=== PATIENT | female | born 2000 | race Caucasian/White ===

== ENCOUNTER 2023-12-29 09:30 | Observation (INO) | payer OTHER, SELFPAY ==
[2023-12-29 09:50] VITALS: BP 147/77; PULSE 100
[2023-12-29 10:07] VITALS: BP 105/58; PULSE 74
[2023-12-29 10:13] VITALS: PULSE 70
[2023-12-29 10:19] VITALS: PULSE 136
[2023-12-29 10:21] LABS: Amnisure NEGATIVE (NEGATIVE); Internal Control Within Normal Limits
[2023-12-29 10:21] LABS: Bilirubin Urine NEGATIVE (NEGATIVE); Blood Urine NEGATIVE (NEGATIVE); Clarity Urine CLEAR (CLEAR); Color Urine LT. YELLOW (YELLOW); Glucose Urine UA NEGATIVE (NEGATIVE); Ketones Urine NEGATIVE (NEGATIVE); Leukocyte Esterase Urine NEGATIVE (NEGATIVE); Nitrite Urine NEGATIVE (NEGATIVE); Protein Urine NEGATIVE (NEG/TRACE); Specific Gravity Urine <=1.005 (1.005-1.025); Urine Microscopic Indicated NO; Urobilinogen Urine 0.2 EU/dL (0.2-1.0); pH Urine 6.5 (5.0-9.0)
[2023-12-29 11:05] VITALS: PULSE 85
--- NOTE | 2023-12-29 11:20 | PC.NURSE ---
0955 Patient laid back for amnisure collection and SVE. patient moderately uncomfortable with amnisure swab, tolerates SVE fairly well. Patient closed, no fluid noted on exam glove and by inspection. 58 patient repositioned to high fowlers from supine position. Patient reports dizziness, light headed feeling, reaches out for RN assistance. Patient's head laid back, cold rag to forehead, RN remains at bedside. 59 Patient repeatedly states, I'm going to pass out, my heart is pounding, I'm going to pass out. patient pale, diaphoretic, unable to keep eyes open. encouraged deep breathing. Patient continues stating, I'm scared, I'm going to pass out. Patient laid back to semi-fowlers. Carotid and radial pulse bounding to palpation. 1000 SpO2 monitor and BP cuff on, HR and spO2 stable, unable to obtain blood pressure. FHT decelerates from baseline 135bpm slowly down to 80-90bpm, assistance called to bedside. Deceleration sustained for 4 minutes. Patient repositioned on left side, continues stating I'm going to pass out. Oxygen applied for patient comfort at 10L/min non rebreather. Patient states her heart feels like it's pounding. FHT slowly recover to 145bpm. 1005 Sunday SANCHEZ notified of patient status and FHR tracing. 500ml bolus lactated ringers ordered 1007 20G IV started in right AC without difficulty, flushes easily without discomfort. LR started at 999ml/hr for 500ml bolus 1008 Patient reports feeling sleepy, I always feel like this after an episode. RN x2 remain at bedside. Cool rag to forehead, ice chips given, patient reports she continues to feel dizzy but not as bad. patient states this epidsode is probably the worst she's had, but happens frequently at home or work, has been going on since a teenager but definitely worse since her 3rd trimester. O2 discontinued. 1015 Patient remains resting on left side, semi-fowlers.IV infusing without difficulty. Patient denies discomfort. Patient states she is supposed to see a gum remover today for these episodes, states physicians typically brush epidsodes off as anxiety. 1019 Patient calls out and requests assistance, states That feeling is coming back again. Tachycardia noted 130-140bpm, radial pulse fluttery but regular. deep breathing encouraged, RN remains at bedside. 1020 Patient reports discomfort with IV infusion, upper arm cool and firm to touch. IV stopped, discontinued with tip intact. 2 additional attempts to start IV without success 20 and 22G, vein accessed and flash noted and IV advances without difficulty, but infiltrates with flush. IV remains discontinued at this time. 1036 Amnisure results negative. Patient states she is feeling much better, continues with oral hydration. Denies dizziness or lightheadedness, pulse feels as if it's regulating. 1041 Sunday Paged 1050 Report given to Sunday SANCHEZ, discussed patient arrival, lab results reviewed, FHR tracing reviewed. Discharge orders received at this time, if patient is feeling well, so that she may attend her cardiology appointment today. 1100 Plan of care discussed with patient, her , and her mother. Discharge education reviewed, patient sits up slowly with staff assist, denies dizziness or lightheadedness. Patient sits at side of bed momentarily before getting dressed 1110 Patient discharged via wheelchair per this RN and family.
== END 2023-12-29 11:15 | disposition home or self-care (01) ==
PROVIDERS: Admitting Provider Midwife; PCP Nurse Practitioner; Visit Provider Midwife
DX: Z03.71 Encounter for suspected problem with amniotic cavity and membrane ruled out (principal); O26.893 Other specified pregnancy related conditions, third trimester; R55 Syncope and collapse; Z3A.36 36 weeks gestation of pregnancy
CPT/HCPCS: 81003; 84112; G0378; G0379

== ENCOUNTER 2024-01-17 17:58 | Inpatient (IN) | payer OTHER, SELFPAY ==
[2024-01-17] VITALS (14 sets, daily range): BP systolic 110–138; BP diastolic 66–86; PULSE 67–110; TEMP 36.7
--- OUTSIDE RECORDS SUMMARY | 2024-01-17 18:05 | XMS_ITS | CCD ---
Author Organization [facility] Care Team Providers Care Geothermal Sheet Metal Worker Name Role Phone RASHI TELLEZ Attending Unavailable AICHHOLZ, HAIRSPRING ASSEMBLER FAIZA Consulting Unavailable AICHHOLZ, HAIRSPRING ASSEMBLER FAIZA Primary Care Unavailable AICHHOLZ, HAIRSPRING ASSEMBLER FAIZA Admitting Unavailable Koki Worthington Unavailable Soumya Wetzel Unavailable LASHON ALBA Referring Unavailable FAIZA TELLEZ Primary Care Unavailable MAYANK, BRIDGETT Attending Unavailable FLORO, LSAHON Referring Unavailable MAYANK, BRIDGETT Referring Unavailable FLORO, LASHON L Attending Unavailable FLORO, LASHON L Referring Unavailable FLORO, LASHON L Attending Unavailable FLORO, LASHON L Attending Unavailable FLORO, LASHON L Attending Unavailable FLORO, LASHON L Referring Unavailable FLORO, LASHON L Attending Unavailable FLORO, LASHON L Referring Unavailable AICHHOLShawn FAIZA Attending Unavailable FLORO, LASHON L Attending Unavailable FLORO, LASHON L Attending Unavailable FLORO, LASHON L Attending Unavailable FLORO, LASHON L Attending Unavailable FLORO, LASHON L Attending Unavailable FLORO, LASHON L Referring Unavailable Medications Current Medications Medication Drug Class(es) Dates Sig (Normalized) Sig (Original) [id number] 200 actuat albuterol 0.09 mg/actuat metered dose inhaler (2 sources) beta2-Adrenergic Agonist Start: 10-16-2022 take 2 puff(s) by inhalation every four hours as needed Albuterol Sulfate HFA 108 (90 Base) MCG/ACT 2 puffs as needed Inhalation every 4 hrs Sep, Active Start: 10-16-2022 take 2 puff(s) by in halation every four hours as needed Albuterol Sulfate HFA 108 (90 Base) MCG/ACT 2 puffs as needed Inhalation every 4 hrs Sep, Not-Taking amoxicillin 875 mg / clavulanate 125 mg oral tablet (4 sources) Penicillin-class Antibacterial Start: 11-09-2023 take 1 tablet by mouth twice daily Amoxicillin-Pot Clavulanate Active 1 TAB PO Twice daily November 09, 2023 12:00am Start: 10-16-2022 take 1 tablet by wallace th every twelve hours Amoxicillin-Pot Clavulanate 875-125 MG 1 tablet Orally every 12 hrs for 10 day(s) Mar, Active escitalopram 10 mg oral tablet (2 sources) Serotonin Reuptake Inhibitor take 1 tablet by mouth every twenty-four hours Lexapro 10 MG 1 tablet Orally Once a day Active predniSONE 20 mg oral tablet (1 source) Start: take 1 tablet by mouth every twelve hours prednisone 20 MG 1 tablet Orally BID for 5 Mar, Active Completed/Discontinued Medications Medication Drug Class(es) Dates Sig (Normalized) Sig (Original) benzonatate 100 mg oral capsule (2 sources) Non-narcotic Antitussive Start: 10-16-2022 take 1 capsule by mouth every eight hours Benzonatate 100 MG 1 capsule as needed Orally Three times a day for 10 days Sep, Not-Taking Problems Active Problems Problem Classification Problem Date Documented Da te Episodic/Chronic Cardiac dysrhythmias (1 source) Tachycardia, unspecified; Translations: [Tachycardia, unspecified] Onset: 12-29-2023 Episodic Other upper respiratory infections (2 sources) Acute maxillary sinusitis, unspecified Episodic Prolapse of female genital organs (2 sources) Other female genital prolapse; Translations: [Other female genital prolapse] Onset: 10-26-2023 Chronic Syncope (1 source) Syncope and collapse; Translations: [Syncope and collapse] Onset: 12-29-2023 Episodic Unclassified (3 sources) CONTACT W/AND (SUSP) EXPOS COVID-19; Translations: [CONTACT W/AND (SUSP) EXPOS COVID-19] Onset: 07-29-2021 Unclassified (1 source) New Patient Onset: 12-29-2023 Past or Other Problems Problem Classification Problem Date Documented Da te Episodic/Chronic Unclassified (1 source) CONTACT W/AND (SUSP) EXPOS COVID-19; Translations: [CONTACT W/AND (SUSP) EXPOS COVID-19] Onset: 07-23-2021 Unclassified (1 source) Cough R05.9 Unclassified (1 source) Suspected COVID-19 virus infection Z20.822 Results Test Name Value Interpretation Reference Range Facility US OB FOLLOW UP TRANSABDOMIN AL APPROACHon 01-11-2024 US OB FOLLOW UP TRANSABDOMINAL APPROACH FINDINGS: A single, live intrauterine is present with normal cardiac rate of 141 beats per minute. Normal activity and amniotic fluid volume. Amniotic fluid index is 18.0 cm. Morphology is grossly normal. The cervix is obscured from positioning. The placenta is fundal, Grade 1 not associated with the cervical os. The current sonographic age is38 weeks and 2 days, based on the following measurements: BPD 9.4 cm (38 weeks, 2 days) Head Circumference 33.5cm ( 38 weeks,2 days) Abdominal Circumference 34.4cm ( 38 weeks, 2 days) Femur Length 7.5cm (38 weeks, 2 days) Presentation Cephalic Placenta Fundal Grade 1 Weight (g) by Percentile 63.3% * These measurements result in an estimated date of delivery of January 23, 2024 The current estimated weight is 3443 grams ( 7 pound, 9 ounces). IMPRESSION: Single, live intrauterine , current sonographic age of 38 weeks and 2 days, with an estimated date of delivery of * Estimated Weight (g) by Percentile is based upon an accurate estimated age based on last menstrual period. TRANSCRIBED BY: ELECTRONICALLY SIGNED BY: Lui Yu MD Normal Not Available US OB FOLLOW UP TRANSABDOMIN AL APPROACHon 11-16-2023 OB FOLLOW UP TRANSABDOMINAL APPROACH FINDINGS: A single, live intrauterine is present with normal cardiac rate of 141 beats per minute. Normal activity and amniotic fluid volume. Amniotic fluid index is 16.0 cm. Morphology is grossly normal. The cervix obscured from positioning. The placenta is fundal, Grade 1 not associated with the cervical os. The current sonographic age is 30 weeks and 2 days, based on the following measurements: BPD 7.6 cm (30 weeks, 2 days) Head Circumference 27.7cm (30 weeks, 2 days) Abdominal Circumference 25.8 cm (30 weeks, 0 days) Femur Length 5.8 cm ( 30 weeks, days) Presentation Cephalic Placenta Fundal Grade 1 These measurements result in an estimated date of delivery of January 23, 2024 The current estimated weight is 1514 grams +/- grams ( 3 pound, 5 ounces). Weigh by percentile 32.3% IMPRESSION: Single, live intrauterine , current sonographic age of 30 weeks and 2 days, with an estimated date of delivery of January 23, 2024. Prior examination August 29, 2023 delivery at that time was January 27, 2024. TRANSCRIBED BY: ELECTRONICALLY SIGNED BY: Lui Yu MD Normal Not Available US OB 14+ WEEKS ANATOMY SCAN on 08-29-2023 US OB 14+ WEEKS ANATOMY SCAN FINDINGS: Comparison made with prior examination of June 22, 2023. A single, live intrauterine is present with normal cardiac rate of 143 beats per minute. Normal activity and amniotic fluid volume. Amniotic fluid index is 11.0 cm. Morphology is grossly normal. Bilateral 2-3 mm choroid plexus cysts.The cervix is long and closed, 4.6cm. The placenta is posterior, not associated with the cervical os. The current sonographic age is 18 weeks and 4 days, based on the following measurements: BPD 4.3cm ( 19weeks, 0 days) Head Circumference 15.8 cm ( 18weeks,5 days) Abdominal Circumference 12.6 cm (18 weeks, 1 days) Femur Length 2.7 cm (18 weeks, 1 days) Presentation Cepahlic Placenta Posterior These measurements result in an estimated date of delivery of January 26, 2024. The current estimated weight is 230 grams +/- grams ( pound, 8 ounces). 11.9% IMPRESSION: Single, live intrauterine , current sonographic age of 18 weeks and 4 days, with an estimated date of delivery of January 26, 2024. Date of delivery is consistent with prior examination of June 22, 2023. TRANSCRIBED BY: ELECTRONICALLY SIGNED BY: Lui Yu MD Normal Not Available US OB < 14 WEEKS EARLYon US OB < 14 WEEKS EARLY FINDINGS: Uterus measures 9.5 x 7.8 x 6.4 cm. A well-defined decidual reaction surrounds a well-defined gestational sac. Within the gestational sac is both a yolk sac, and a single live intrauterine , with heart rate 158 bpm. [place]-rump length measures 2.10 cm, yielding an estimated sonographic gestational age of 8 weeks, 5 days. This compares with gestational age by dates of 9 weeks, 2 days. Sonographic estimated date of delivery January 27, 2024. Right ovary measures 3.5 x 2.2 x 2.3 cm. Left ovary measures 2.6 x 2.7 x 1.6 cm. Both ovaries normal in size, shape, echogenicity and color flow. No free fluid. No adnexal masses. IMPRESSION: Impression: Single live intrauterine with estimated sonographic gestational age 8 weeks, 5 days. ELECTRONICALLY SIGNED BY: Kp Donnelly MD Normal Not Available COVID + FLU Quick Testingon 04-19-2023 SARS-CoV-2 (COVID-19) RNA KINGSLEY+probe Ql (Unsp spec) Negative [facility] Other COVID + FLU Quick Testing Negative [facility] [employer] Other COVID/FLU/RSV RT-PCRon 10-16 SARS-CoV-2 (COVID-19) RNA KINGSLEY+probe Ql (Unsp spec) Negative [place] Other COVID/FLU/RSV RT-PCR Negative [facility] [employer] Other Covid-19 PCR ([facility]on 06-26 SARS-CoV-2 (COVID-19) RNA KINGSLEY+probe Ql (Unsp spec) Not detected Normal NOT DETECTED [facility] Comment on above: Result Comment: This test is not yet approved or cleared by the [place] FDA. When there are no FDA-approved or cleared tests available, and other criteria are met, FDA can make tests available under an emergency access mechanism called an Emergency Use Authorization (EUA). The EUA for this test is supported by the [place] of Health and Human Service's (HHS's) declaration that circumstances exist to justify the emergency use of in vitro diagnostics for the detection and/or diagnosis of the virus that causes COVID-19. This EUA will remain in effect (meaning this test can be used) for the duration of the COVID-19 declaration justifying emergency of IVDs, unless it is terminated or revoked by FDA (after which the test may no longer be used). When diagnostic testing is negative, the possibility of a false negative should be considered in the context of a patient's recent exposures and the presence of clinical signs and symptoms consistent with SARS-CoV-2. Performed By: #### C [facility] #### [facility] [address] [place] [address] Dr. Rafa Randall Vital Signs Date Time Vital Sign Value Performing Clinician Facility 11-09-2023 09:12-0400 Body height 154.94 cm [facility] 11-09-2023 09:12-0400 Body mass index (BMI) [Ratio] 23.5 kg/m2 [facility] 11-09-2023 09:12-0400 Body temperature 96.5 [degF] [facility] 11-09-2023 09:12-0400 Body weight 56.41 kg [facility] 11-09-2023 09:12-0400 Diastolic blood pressure 84 mm[Hg] [facility] 11-09-2023 09:12-0400 Heart rate 79 /min [facility] 11-09-2023 09:12-0400 Respiratory rate 16 /min [facility] 11-09-2023 09:12-0400 SaO2% (BldA) [Mass fraction] 99 % [facility] 11-09-2023 09:12-0400 Systolic blood pressure 120 mm[Hg] [facility] 04-19-2023 18:00-0400 Body height 154.94 cm Soumya [employer] Other [employer] [facility] [employer] Other 04-19-2023 18:00-0400 Body mass index (BMI) [Ratio] 20.74 kg/m2 Soumya [employer] Other [employer] Other 04-19-2023 18:00-0400 Body temperature 100 [degF] Soumya Wetzel Other [employer] Other 04-19-2023 18:00-0400 Body weight 49.81 kg Soumya [employer] Other [employer] Other 04-19-2023 18:00-0400 Respiratory rate 18 /min Soumya Wetzel Other [employer] Other 04-19-2023 18:00-0400 SaO2% (BldA) [Mass fraction] 99 % Soumya Wetzel Other [employer] Other 10-16-2022 10:30-0400 Body height 154.94 cm Koki Worthington Other [employer] Other 10-16-2022 10:30-0400 Body mass index (BMI) [Ratio] 20.63 kg/m2 Koki Worthington Other [employer] Other 10-16-2022 10:30-0400 Body temperature 100.4 [degF] Koki Worthington Other [employer] Other 10-16-2022 10:30-0400 Body weight 49.53 kg Koki Worthington Other [employer] Other 10-16-2022 10:30-0400 Diastolic blood pressure 69 mm[Hg] Koki Worthington Other [employer] Other 10-16-2022 10:30-0400 Respiratory rate 16 /min Koki Worthington Other [employer] Other 10-16-2022 10:30-0400 SaO2% (BldA) [Mass fraction] 99 % Koki Worthington Other [employer] Other 10-16-2022 10:30-0400 Systolic blood pressure 103 mm[Hg] Koki Worthington Other [employer] Other Encounters Encounter Date Encounter Type Care Provider Facility Start: 01-11-2024 End: 01-11-2024 ambulatory LASHON L FLORO Not Available Start: 01-05-2024 End: 01-05-2024 ambulatory LASHON L FLORO Not Available Start: 12-29-2023 ambulatory [facility] Start: 12-29-2023 End: 12-29-[address] [facility] Start: 12-28-2023 End: 12-28-2023 ambulatory LASHON L FLORO Not Available Start: 12-14-2023 End: 12-14-2023 ambulatory LASHON L FLORO Not Available Start: 11-30-2023 End: 11-30-2023 ambulatory LASHON L FLORO Not Available Start: 11-28-2023 End: 11-28-2023 ambulatory FAIZA ARANZAHHOLZ Not Available Start: 11-16-2023 End: 11-16-2023 ambulatory LASHON L FLORO Not Available Start: 11-09-2023 End: 11-09-2023 ambulatory [facility] Work Phone: Start: 11-09-2023 End: 11-09-2023 Patient encounter procedure [facility] Work Phone: Start: 10-26-2023 End: 10-27-2023 ambulatory LASHON FLORO [facility] Start: 10-19-2023 End: 10-19-2023 ambulatory LASHON L FLORO Not Available Start: 09-15-2023 End: 09-15-2023 ambulatory LASHON L FLORO Not Available Start: 08-29-2023 End: 08-29-2023 ambulatory LASHON L FLORO Not Available Start: 07-27-2023 End: 07-27-2023 ambulatory LASHON L FLORO Not Available Start: 06-22-2023 End: 06-22-2023 ambulatory LASHON L FLORO Not Available Start: 04-19-2023 End: 04-19-2023 ambulatory Soumya Wetzel Other [employer] Other Start: 04-19-2023 Office outpatient visit 25 minutes Soumya Wetzel [facility] Start: 10-16-2022 End: 10-16-2022 ambulatory Reyvince Ander Other [employer] Other Start: 10-16-2022 Office outpatient visit 15 minutes Koki Worthington [facility] Start: 07-23-2021 End: 07-23-2021 ambulatory RASHI TELLEZ Facility: Plan of Treatment Date Care Activity Detail Author [facility] Payers Date Payer Category Payer Unknown [id number] 2.16.84 [id number] 1998 Unknown [id number] 2.16.8 [id number] 1998 Unknown [id number] 2.16.8 [id number] 1998 Unknown [id number] 2.16.8 40.1.295779.3.579.2.1286 1998 Unknown [id number] 2.16.84 0.1.311560.3.579.2.1259 1998 Unknown [id number] 2.16.84 0.1.794327.3.579.2.1259 1998 Unknown [id number] 2.16.84 0.1.877106.3.579.2.1259 1998 Unknown [id number] 2.16.84 0.1.227505.3.579.2.1259 1998 Unknown [id number] 2.16.84 0.1.767209.3.579.2.1259 1998 Unknown [id number] 2.16.84 0.1.773178.3.579.2.1259 1998 Unknown [id number] 2.16.84 0.1.295332.3.579.2.1259 1998 Unknown [id number] 2.16.84 0.1.454983.3.579.2.9 1998 Unknown [id number] 2.16.84 0.1.557735.3.579.2.1259 1998 Unknown [id number] 2.16.84 0.1.378546.3.579.2.9 1998 Unknown [id number] 2.16.84 0.1.451982.3.579.2.1259 1998 Unknown [id number] 2.16.84 0.1.175319.3.579.2.9 1998 Unknown [id number] 2.16.840 .1.031047.3.579.2.9 1998 Unknown [id number] 2.16.840 .1.756315.3.579.2.9 1998 Unknown [id number] 2.16.840 .1.327940.3.579.2.1259 1959 Unknown [id number] Social History Date Type Detail Facility Unknown if ever smoked [employer] Other Sex Assigned At Sex Assigned At Bir th [employer] Other Start: 11-09-2023 Tobacco smoking status NHIS Never smoked tobacco (finding) [facility] Start: 2000 Sex Assigned At Female [facility] Evaluation note 04-19-2023 Note Date & Type Note Facility 04-19-2023 Evaluation note Encounter Date Diagnosis Assessment Notes Mar, Acute non-recurrent maxillary sinusitis (ICD-10 - J01.00) Advise patient that rapid COVID/influenz a A/B test was negative today in office. Discussed diagnosis with patient. Will today for bacterial sinusitis based on physical exam and duration of symptoms. Take antibiotic and steroid as prescribed, complete entire course of therapy even if symptoms resolve. Reviewed allergies and recent antibiotic use with patient. Supportive care as directed, push fluids and rest, Tylenol as directed for discomfort/fev er, warm moist compress over sinuses several times a day, cool mist humidification , nasal saline spray as directed. Symptoms should improve in the next 3 days, if symptoms persist follow up with PCP. Immediate eval for warning s/sx as discussed. Patient verbalizes understanding and is agreeable to treatment plan Mar, Suspected COVID-19 virus infection (ICD-10 - Z20.822) [employer] Other Evaluation note 10-16-2022 Note Date & Type Note Facility 10-16-2022 Evaluation note Encounter Date Diagnosis Assessment Notes Sep, Cough (ICD-10 - R05.9) covid, flu and rsv all neg, see above. Sep, Acute non-recurrent maxillary sinusitis (ICD-10 - J01.00) Pt is to take abx as prescribed with food. Push fluids and rest. Pt denied work note today. Pt is to take otc antipyretic prn for fever and aches. Pt is to take rx inhaler and cough suppressant prn for cough and chest tightness. Pt is to be re-evaluated after tx if sx worsen or don't improve by pcp or UC. Pt is to call the office with any questions or concerns regarding dx and tx. Pt understood and agreed to tx plan. [employer] Other Evaluation note Note Date & Type Note Facility Evaluation note No assessment information availa [facility] Work Phone: History general Narrative - Reported Note Date & Type Note Facility History general Narrative - Reported Type Medical History anxiety [facility] [employer] Other Summary Purpose Family History No Family History Records FoundNo Family History Records FoundNo Family History Records FoundNo Family History Records Found Advance Directives No Advanced Directives Records Found Advance Directive Response Recorded Date/ Time Advance Directives No November 08, 024 9:07am Chief Complaint and Reason for Visit Chief Complaint Cough, Congestion, s ore throat Additional Source Comments INFORMATION SOURCE (unrecogn ized section and content) DATE CREATED AUTHOR 07/30/2021 [facility] DATE CREATED AUTHOR AUTHOR'S ORGANIZ ATION 10/27/2023 [facility] DATE CREATED AUTHOR AUTHOR'S ORGANIZ ATION 12/31/2023 [facility] DATE CREATED AUTHOR AUTHOR'S ORGANANAM ATION 01/15/2024 [facility] EPIC REASON FOR VISIT (unrecogniz ed section and content) h/a, congestion, coughSINUS INFECTION? Care Teams (unrecognized sec tion and content) Team Status: Active Member Role Status Dates Faiza Tellez Primary Care Provider Active Team Status: Inactive Member Role Status Dates Faiza Tellez Primary Care Provider Active Sta rt: November 09, 2023 End: November 09, 2023 TONI Barakat Attending Provider Active S tart: November 09, 2023 End: November 09, 2023 Goals (unrecognized section and content) Goals may be documented in a n alternate section FOR RECORDS PERTAINING TO PATIENTS WHO ARE OR HAVE BEEN ENROLLED IN A CHEMICAL DEPENDENCY/SUBSTANCEABUSE PROGRAM, SOME INFORMATION MAY BE OMITTED. This clinical summary was aggregated from multiple sources. Caution should be exercised in using it in the provision of clinical care. This summary normalizes information from multiple sources, and as a consequence, information in this document may materially change the coding, format and clinical context of patient data. In addition, data may be omitted in some cases. CLINICAL DECISIONS SHOULD BE BASED ON THE PRIMARY CLINICAL RECORDS. [facility] [employer] provides no warranty or guarantee of the accuracy or completeness of information in this document.
[2024-01-17 19:00] LABS: Red Blood Count 4.17 10^6/uL (4.20-5.40); White Blood Count 11.5 10^3/uL (4.0-11.0)
[2024-01-17 19:01] LABS: Hematocrit 35.5 % (36.0-48.0); Hemoglobin 11.9 g/dL (12.0-16.0); Mean Corpuscular HGB Conc 33.5 g/dL (29.9-35.2); Mean Corpuscular Hemoglobin 28.5 pg (26.7-34.0); Mean Corpuscular Volume 85.1 fL (81.0-99.0); Mean Platelet Volume 10.9 fL (9.5-13.5); Platelet Count 334 10^3/uL (150-450); Red Cell Distribution Width 12.4 % (11.0-15.0)
[2024-01-17 19:10] LABS: Amphetamine Screen Urine NEGATIVE (NEGATIVE); Barbiturates Screen Urine NEGATIVE (NEGATIVE); Benzodiazepines Screen Urine NEGATIVE (NEGATIVE); Buprenorphine Screen Urine NEGATIVE (NEGATIVE); Cannabinoid Screen Urine NEGATIVE (NEGATIVE); Cocaine Screen Urine NEGATIVE (NEGATIVE); Methadone Screen Urine NEGATIVE (NEGATIVE); Methamphetamines Screen Urine NEGATIVE (NEGATIVE); Opiate Screen Urine NEGATIVE (NEGATIVE); Oxycodone Screen Urine NEGATIVE (NEGATIVE); Phencyclidine Screen Urine NEGATIVE (NEGATIVE); Tricyclic Antidepressant Urine NEGATIVE (NEGATIVE)
[2024-01-17] MEDS: DINOPROSTONE 10 MG VAG INSERT.ER VAGINAL (19:45)
--- NOTE | 2024-01-17 20:45 | PM.OBHP ---
OB - H&P: HPI History of Present Illness Chief complaint: INDUCTION : 1 Para: 0 Gestational age based on last menstrual period: 39.1 Comments: patient desires elective induction history of panic and anxiety attacks vaso vagal disorder per cardiology History of Present Dating criteria: LMP confirmed by 1st trimester US care: good care Ultrasounds: normal 1st trimester US complications: other (anxiety ) Medical complications OB: cardiovascular Narrative: vaso vagal disorder , elevated pulse rate when vagal occurs Labs Blood type: A (+) positive Rubella: immune RPR/VDLR: nonreactive GBS status: negative HBsAG: negative Review of Systems ROS Psychiatric: Reports: anxiety and other (history of anxiety and on medications but she does not take any medications) Meds Home Medications and Allergies Allergies Allergy/AdvReac Type Severity Reaction Status Date / Time No Known Drug Allergies Allergy Verified 01/17/24 18:22 Exam Constitutional Vital Signs, click to edit/add: Last Vital Signs Temp 98.1 F 01/17/24 18:45 Pulse 79 01/17/24 20:38 Resp 16 01/17/24 18:45 BP 123/74 01/17/24 20:38 O2 Del Method Room Air 01/17/24 18:45 Documenting provider has reviewed patient's vital signs: yes Common normals: no apparent distress, average body habitus, oriented x3, no limitations, healthy appearing, alert and well nourished General appearance: cooperative and comfortable Orientation/consciousness: Yes awake, Yes oriented to person, Yes oriented to place and Yes oriented to time HENMT Common normals: normocephalic Eye Common normals: EOMs intact bilaterally Neck & C-Spine Common normals: full ROM Lymph Lymphatic: no lymphadenopathy noted Chest Common normals: inspection of chest normal Respiratory Common normals: normal respiratory effort Cardio Common normals: regular rate and regular rhythm Rate: regular rate Rhythm: regular rhythm GI Common normals: Normal to inspection, nondistended, normoactive bowel sounds present Common normals: no CVA tenderness Back & Pelvis Common normals: no CVA tenderness Extremity Common normals: normal to inspection General: normal exam except as noted Neuro Common normals: oriented x3 Psych Common normals: mental status grossly normal, thought process normal, cooperative, affect normal, speech normal and activity/motor behavior normal Attitude: calm Results Labs Labs: Short CBC 01/17/24 Range/Units 18:25 WBC 11.5 H (4.0-11.0) 10^3/uL Hgb 11.9 L (12.0-16.0) g/dL Hct 35.5 L (36.0-48.0) % Plt Count 334 (150-450) 10^3/uL OB - A/P Assessment and Plan (1) Term :
--- NOTE | 2024-01-17 21:31 | PM.EN ---
Event Note Event Note: 1948 to room and assessment obtained. SVE performed patient is fingertip, soft, -3. Cervidil placed and patient tolerated procedure well. 2129 to room and bedside US obtained. Baby is in cephalic presentation
[2024-01-17] MEDS: ACETAMINOPHEN 325 MG TABLET 650 MG PO (22:56)
[2024-01-17] MEDS: ZOLPIDEM TARTRATE 5 MG TABLET PO (22:57)
[2024-01-18] VITALS (67 sets, daily range): BP systolic 99–210; BP diastolic 53–94; PULSE 62–193; TEMP 36.4–36.6
[2024-01-18] MEDS: LACTATED RINGER'S SOLUTION 1,000 ML 125 ML IV ×2 (06:50→16:22)
[2024-01-18] MEDS: OXYTOCIN/0.9 % SODIUM CHLORIDE 10 UNITS/500 ML PLAST..BAG 6 UNIT IV (07:37)
[2024-01-18] MEDS: LACTATED RINGER'S SOLUTION 1,000 ML 999 ML IV (11:05)
[2024-01-18] MEDS: ROPIVACAINE HCL/PF 400 MG/200 ML PREMIX 6 MG EPIDURAL (12:03)
--- NOTE | 2024-01-18 14:09 | PC.NURSE ---
Clear, pale yellow urine obtained with delgadillo insertion.
--- NOTE | 2024-01-18 19:32 | W.PC.ACHO ---
Registration Status: ADM IN Primary Language: Omani Preferred Language: Omani Report given to Allyssa Curry RN at [id number]. Active Medications Generic Name Dose Route Start Last Admin Trade Name Inocencioq PRN Reason Stop Dose Admin Acetaminophen 650 mg 01/17/24 22:23 01/17/24 22:56 Acetaminophen 325 Mg Tablet PO 650 mg Q6H PRN Administration Pain Carboprost Tromethamine 250 mcg 01/17/24 18:13 Carboprost Tromethamine 250 Mcg/Ml 1 Ml Vial IM 01/19/24 18:13 Q15M PRN Bleeding Diphenhydramine HCl 25 mg 01/18/24 07:17 Diphenhydramine Hcl 50 Mg/Ml Vial IV 01/19/24 07:19 Q6H PRN Itching Ephedrine Sulfate 5 mg 01/18/24 07:17 Ephedrine Sulfate 50 Mg/Ml Vial IV 01/19/24 07:19 Q5M PRN Blood Pressure - Low Fentanyl Citrate 100 mcg 01/18/24 07:17 Fentanyl Citrate/Pf 100 Mcg/2 Ml Vial EPIDURAL ONCE PRN epidural Fentanyl Citrate 100 mcg 01/18/24 07:17 Fentanyl Citrate/Pf 100 Mcg/2 Ml Vial EPIDURAL ONCE PRN epidural Lactated Ringer's 1,000 mls @ 125 mls/hr 01/17/24 18:30 01/18/24 16:22 Lactated Ringers IV 125 mls/hr .Q8H PRN Administration Labor Induction Oxytocin/Sodium Chloride 20 units in 1,000 mls @ 125 mls/hr 01/17/24 18:13 Pitocin 20 Unit/1,000 Ml-Ns IV Q8H PRN POST DELIVERY Oxytocin/Sodium Chloride 10 units in 500 mls @ 6 mls/hr 01/18/24 07:00 01/18/24 07:37 Pitocin 10 Unit/500 Ml-Ns IV 2 milliunit/min TITR DENIS 6 mls/hr Administration Protocol 2 MILLIUNIT/MIN Ropivacaine/Sodium Chloride 400 mg in 200 mls @ 6 mls/hr 01/18/24 07:30 01/18/24 12:03 Naropin 0.2% 400 Mg/200 Ml Bag EPIDURAL 6 mls/hr Q24H DENIS Administration Lidocaine 5 ml 01/17/24 18:13 Lidocaine Viscous 2% 15 Ml Solution TOPICAL ONCE PRN Pain Lidocaine 5 ml 01/18/24 07:17 Lidocaine Hcl 2% Pf 100 Mg/5 Ml Vial INJ 01/19/24 07:18 Q1H PRN Epidural Methylergonovine Maleate 0.2 mg 01/17/24 18:13 Methylergonovine Maleate 0.2 Mg/Ml Ampule IM 01/19/24 18:13 ONCE PRN Uterine Contractility/Contract Methylergonovine Maleate 0.2 mg 01/17/24 18:13 Methylergonovine Maleate 0.2 Mg Tablet PO 01/19/24 18:13 Q4H PRN Uterine Contractility/Contract Misoprostol 600 mcg 01/17/24 18:13 Misoprostol 100 Mcg Tablet PO 01/19/24 18:13 ONCE PRN Uterine Bleeding Misoprostol 800 mcg 01/17/24 18:13 Misoprostol 100 Mcg Tablet SL 01/19/24 18:13 ONCE PRN Uterine Bleeding Misoprostol 1,000 mcg 01/17/24 18:13 Misoprostol 100 Mcg Tablet NE 01/19/24 18:13 ONCE PRN Uterine Bleeding Nalbuphine HCl 10 mg 01/17/24 18:13 Nalbuphine Hcl 10 Mg/Ml Ampule IV Q3H PRN Pain Naloxone HCl 0.4 mg 01/18/24 07:17 Naloxone Hcl 0.4 Mg/Ml Vial IV 01/19/24 07:19 ONCE PRN Epidural Ondansetron HCl 4 mg 01/17/24 18:13 Ondansetron Pf 4 Mg/2 Ml Vial IV Q6H PRN Nausea And Vomiting Ondansetron HCl 4 mg 01/17/24 18:13 Ondansetron 4 Mg Rapdis Tablet SL Q6H PRN Nausea And Vomiting Oxytocin 10 unit 01/17/24 18:13 Oxytocin 10 Unit/Ml Vial IM 01/19/24 18:13 ONCE PRN Bleeding Zolpidem Tartrate 5 mg 01/17/24 22:23 01/17/24 22:57 Zolpidem Tartrate 5 Mg Tablet PO 5 mg HS PRN Administration Sleep
[2024-01-18] MEDS: ZOLPIDEM TARTRATE 5 MG TABLET PO (20:40)
[2024-01-19] VITALS (40 sets, daily range): BP systolic 95–180; BP diastolic 54–98; PULSE 61–118; TEMP 36.4–38.3
[2024-01-19] MEDS: LACTATED RINGER'S SOLUTION 1,000 ML 125 ML IV ×2 (00:20→08:02)
[2024-01-19] MEDS: OXYTOCIN/0.9 % SODIUM CHLORIDE 10 UNITS/500 ML PLAST..BAG 6 UNIT IV (06:30)
[2024-01-19] MEDS: ROPIVACAINE HCL/PF 400 MG/200 ML PREMIX 6 MG EPIDURAL (06:30)
[2024-01-19] MEDS: ONDANSETRON 4 MG RAPDIS TABLET SL (09:00)
[2024-01-19] MEDS: CEFAZOLIN SODIUM/DEXTROSE,ISO 2 GM/50 ML PIGGYBACK IV (11:10)
[2024-01-19] MEDS: ACETAMINOPHEN 325 MG TABLET 650 MG PO (11:36)
[2024-01-19] MEDS: OXYTOCIN/0.9 % SODIUM CHLORIDE 20 UNITS/1,000 ML PLAST..BAG 999 UNIT IV (14:31)
--- NOTE | 2024-01-19 15:07 | PM.OBPRCVD ---
Procedure Procedure: normal spontaneous Intrapartal events: None Induction method: per pitocin protocol Delivery augmentation: rupture of membranes Delivery monitor: external FHT and external uterine Route of delivery: Episiotomy Description: none L&D Laceration Description: perineal - 2nd degree Delivery repair: Vicryl Estimated blood loss (mL): 250 Anesthesia type: Epidural Disposition: no change Infant Delivery date: 01/19/24 Gender: male presentation: vertex Placental delivery description: Spontaneous cord description: 3 Vessels heart rate - 1 minute: 100 bpm or Greater respiratory effort - 1 minute: Spontaneous/Strong Cry muscle tone - 1 minute: Active Movement reflex response - 1 minute: Prompt Response color - 1 minute: Bluish Hands or Feet total score - 1 minute: 9 heart rate - 5 minute: 100 bpm or Greater respiratory effort - 5 minute: Spontaneous/Strong Cry muscle tone - 5 minute: Active Movement reflex response - 5 minute: Prompt Response color - 5 minute: Bluish Hands or Feet total score - 5 minute: 9 Labor State Duration Labor - Stage 3 Duration: 8 minutes Total Length of Latency: 20 hours and 37 minutes
[2024-01-19] MEDS: KETOROLAC TROMETHAMINE 30 MG/ML VIAL IVP (15:12)
[2024-01-19] MEDS: IBUPROFEN 400 MG TABLET 800 MG PO (21:26)
[2024-01-20 00:19] VITALS: BP 112/63; PULSE 80; TEMP 36.6
[2024-01-20] MEDS: IBUPROFEN 400 MG TABLET 800 MG PO ×3 (05:29→23:56)
--- NOTE | 2024-01-20 08:22 | P.OBPN_ITS ---
OB - PN: Subj Subjective Patient comments: no complaints and pain well controlled [place] status: doing well Exam Constitutional Vital Signs, click to edit/add: Last Vital Signs Temp 97.8 F 01/20/24 00:19 Pulse 80 01/20/24 00:19 Resp 16 01/20/24 00:19 BP 112/63 01/20/24 00:19 O2 Del Method Room Air 01/20/24 00:19 Documenting provider has reviewed patient's vital signs: yes Common normals: no apparent distress Respiratory Common normals: normal respiratory effort and clear to auscultation bilaterally Cardio Common normals: regular rate and regular rhythm GI Common normals: Normal to inspection, nondistended, normoactive bowel sounds present Extremity Common normals: normal to inspection and no calf tenderness OB - PN: A/P Assessment and Plan (1) Term : Plan - Vaginal Delivery day: 1 Plan: routine care Time Spent with Patient Time: Total time spent is greater than 50% in coordination of care (as documented) at patient's floor/unit and/or counseling patient: Total time spent with greater than 50% in coordination of care (as documented) at patient's floor/unit and/or counseling patient: less than 15 minutes
[2024-01-20 08:42] VITALS: BP 136/81; PULSE 94
[2024-01-20] MEDS: DOCUSATE SODIUM 100 MG CAPSULE PO ×2 (08:43→21:00)
[2024-01-20 09:46] VITALS: TEMP 36.7
[2024-01-20 16:51] VITALS: BP 123/84; PULSE 95
[2024-01-21 00:20] VITALS: TEMP 37
[2024-01-21 00:22] VITALS: BP 121/87; PULSE 77
[2024-01-21 09:05] VITALS: BP 122/79; PULSE 83; TEMP 37
[2024-01-21] MEDS: IBUPROFEN 400 MG TABLET 800 MG PO (09:08)
[2024-01-21] MEDS: DOCUSATE SODIUM 100 MG CAPSULE PO (09:09)
--- NOTE | 2024-01-21 09:38 | PM.OBPN ---
OB - PN: Subj Subjective Patient comments: no complaints [place] status: doing well Exam Constitutional Vital Signs, click to edit/add: Last Vital Signs Temp 98.6 F 01/21/24 00:20 Pulse 83 01/21/24 09:05 Resp 16 01/21/24 00:20 BP 122/79 01/21/24 09:05 O2 Del Method Room Air 01/21/24 00:20 Documenting provider has reviewed patient's vital signs: yes Common normals: no apparent distress GI Inspection: normal to inspection Other: Fundus - firm below Umbilicus Other: minimal bleeding Extremity Common normals: no calf tenderness OB - PN: A/P Assessment and Plan (1) Term : Assessment and Plan: Home today Plan - Vaginal Delivery day: 2 Plan: routine care and discharge home Time Spent with Patient Time: Total time spent is greater than 50% in coordination of care (as documented) at patient's floor/unit and/or counseling patient: Total time spent with greater than 50% in coordination of care (as documented) at patient's floor/unit and/or counseling patient: less than 15 minutes
--- NOTE | 2024-01-21 09:40 | P.DS_ITS ---
DS: Providers Provider Date of admission: 01/17/24 17:58 Primary care physician: Faiza Tellez NP Admitting clinician: LASHON ALBA Attending physician on admission: Rome Colby Attending physician on discharge: LASHON ALBA Discharging clinician: Lilian Lezama Anticipated date of discharge: 01/21/24 DS: Diagnosis Discharge Diagnosis (1) Term : Assessment and plan: Home Plan Home OB - DS: Summary Complications complications: none Delivery method: spontaneous vaginal delivery Gender: male Discharge plan: home Time Spent with Patient Time attestation: Total time spent providing and/or coordinating discharge services: Time spent: less than 30 minutes Exam Constitutional Vital Signs, click to edit/add: Last Vital Signs Temp 98.6 F 01/21/24 00:20 Pulse 83 01/21/24 09:05 Resp 16 01/21/24 00:20 BP 122/79 01/21/24 09:05 O2 Del Method Room Air 01/21/24 00:20 Documenting provider has reviewed patient's vital signs: yes Common normals: no apparent distress GI Common normals: soft to palpation Inspection: normal to inspection Other: Fundus - firm, below umbilicus Other: minimal bleeding Discharge Plan Discharge Disposition: Home, Self-Care Condition: Good Assessment: Term - delivered Activity: increase activity as tolerated Diet: advance to your usual diet Print Language: [place] Activity Restrictions/Additional Instructions: Nothing per vagina for 6 weeks Forms: Portal Instructions Follow Up Appointments: as scheduled
[2024-01-21] MEDS: BENZOCAINE/MENTHOL 85 GRAM SPRAY BOTTLE 1 APPLIC TOPICAL (11:56)
[2024-01-21] MEDS: GLYCERIN/WITCH HAZEL PADS 1 PAD TOPICAL (11:57)
== END 2024-01-21 14:15 | disposition home or self-care (01) | DRG 807 ==
PROVIDERS: Admitting Provider Midwife; PCP Nurse Practitioner; Visit Provider Midwife
DX: O99.42 Diseases of the circulatory system complicating childbirth (principal); Z37.0 Single live birth; O99.344 Other mental disorders complicating childbirth; O70.1 Second degree perineal laceration during delivery; Z3A.39 39 weeks gestation of pregnancy; F41.1 Generalized anxiety disorder; I99.8 Other disorder of circulatory system
CPT/HCPCS: 36415; 59050; 59410; 80307; 85027; 86850; 86900; 86901; 96365; 96366; 96375; 96376; J0690; J1885; J2795; Q0162